=== PATIENT | male | born 1965 | race Two or more races ===

== ENCOUNTER 2016-11-22 22:31 | Emergency (ER) | payer OTHER ==
[2016-11-22] MEDS ORDERED: ASPIRIN 81 MG TABLET, CHEWABLE PO ONE (23:05)
--- NOTE | 2016-11-22 23:22 | RADIOLOGY REPORT (SQ) ---
EXAM DESCRIPTION: CHEST SINGLE VIEW COMPLETED DATE/TIME: 11/22/2016 11:15 pm REASON FOR STUDY: cp COMPARISON: None. EXAM PARAMETERS: NUMBER OF VIEWS: One view. TECHNIQUE: Single frontal radiographic view of the chest acquired. RADIATION DOSE: NA LIMITATIONS: None. FINDINGS: LUNGS AND PLEURA: No opacities, masses or pneumothorax. No pleural effusion. MEDIASTINUM AND HILAR STRUCTURES: No masses. Contour normal. HEART AND VASCULAR STRUCTURES: Heart normal in size. Normal vasculature. BONES: No acute findings. HARDWARE: None in the chest. OTHER: No other significant finding. IMPRESSION: NO ACUTE RADIOGRAPHIC FINDING IN THE CHEST. TECHNICAL DOCUMENTATION: JOB ID: [id number]
[2016-11-22 23:30] LABS: ABSOLUTE EOSINOPHILS # (AUTO) 0.1 10^3/uL (0.0-0.6); ABSOLUTE LYMPHOCYTES (AUTO) 2.2 10^3/uL (0.5-4.7); ABSOLUTE MONOCYTES (AUTO) 0.5 10^3/uL (0.1-1.4); ABSOLUTE NEUT (AUTO) 3.1 10^3/uL (1.7-8.2); BASOPHILS % (AUTO) 0.5 % (0-2); EOSINOPHILS % (AUTO) 1.8 % (0-6); HEMATOCRIT 39.3 % (37.9-51.0); HEMOGLOBIN 13.4 g/dL (13.5-17.0); HGB HCT DIFFERENCE 0.9; LYMPHOCYTES % (AUTO) 36.9 % (13-45); MEAN CORPUSCULAR HEMOGLOBIN 29.8 pg (27.0-33.4); MEAN CORPUSCULAR HGB CONC 34.2 g/dL (32.0-36.0); MEAN CORPUSCULAR VOLUME 87 fl (80-97); MONOCYTES % (AUTO) 8.4 % (3-13); RED BLOOD COUNT 4.51 10^6/uL (4.35-5.55); RED CELL DISTRIBUTION WIDTH 12.5 % (11.5-14.0); SEGMENTED NEUTROPHILS % (AUTO) 52.4 % (42-78)
[2016-11-22 23:41] LABS: ALANINE AMINOTRANSFERASE 28 U/L (21-72); ALBUMIN 4.3 g/dL (3.5-5.0); ALKALINE PHOSPHATASE 79 U/L (38-126); ANION GAP 10 (5-19); ASPARTATE AMINO TRANSFERASE 19 U/L (17-59); BILIRUBIN,DIRECT 0.3 mg/dL (0.0-0.4); BILIRUBIN,TOTAL 0.8 mg/dL (0.2-1.3); BLOOD UREA NITROGEN 15 mg/dL (7-20); CALCIUM 9.6 mg/dL (8.4-10.2); CARBON DIOXIDE 27 mmol/L (22-30); CHLORIDE 104 mmol/L (98-107); CREATINE KINASE 185 U/L (55-170); CREATININE RESULT 0.88 mg/dL (0.52-1.25); GLUCOSE 104 mg/dL (75-110); POTASSIUM 3.9 mmol/L (3.6-5.0); SODIUM 140.6 mmol/L (137-145); TOTAL PROTEIN 6.9 g/dL (6.3-8.2)
[2016-11-22 23:56] LABS: CREATINE KINASE MB 1.04 ng/mL (<4.55)
[2016-11-22 23:59] LABS: TROPONIN I < 0.012 ng/mL
--- NOTE | 2016-11-23 00:46 | ER Document Report ---
ED Cardiac <KAMERON CURRY - Last Filed: 11/23/16 01:07> - General Mode of Arrival: Ambulatory Information source: Patient TRAVEL OUTSIDE OF THE [place] IN LAST 30 DAYS: No - HPI Chest pain location: Substernal Quality of pain: Burning, Indigestion Chest pain radiation location: None Severity now: None Severity at worst: Mild Pain level currently: Denies Cardiac risk factors: Smoker Similar symptoms previously: No Recently seen / treated by doctor: No <HELADIO MCKEON - Last Filed: 11/23/16 02:44> - General Chief Complaint: Chest Pain Stated Complaint: CHEST PAIN Time Seen by Provider: 11/23/16 00:46 - HPI Notes: Patient is a 51 year old male presenting to the emergency department for chest pain x1 week. Patient's pain is waxing and waning and lasts for about 30 minutes each time it is present. Patient states Advil and some "candy" type medicine from the gas station that may be an anti-acid helps relieve his pain. Patient does not recall anything that exacerbates his pain; patient's pain is not exacerbated with food or heavy lifting type of work. Patient does smoke about 5 cigarettes per day. Patient has no known drug allergies. (HELADIO MCKEON) - Related Data Allergies/Adverse Reactions: No Known Allergies Allergy (Unverified 04/05/16 08:43) Past Medical History - General Information source: Patient - Social History Smoking Status: Current Every Day Smoker Cigarette use (# per day): Yes - 1/4 ppd Chew tobacco use (# tins/day): No Frequency of alcohol use: None Drug Abuse: None Family History: None Patient has suicidal ideation: No Patient has homicidal ideation: No - Past Medical History Cardiac Medical History: Reports: None Surgical Hx: Negative - Immunizations Hx Diphtheria, Pertussis, Tetanus Vaccination: Yes <HELADIO MCKEON - Last Filed: 11/23/16 02:44> Review of Systems - Review of Systems Constitutional: No symptoms reported EENT: No symptoms reported Cardiovascular: See HPI, Chest pain Respiratory: No symptoms reported Gastrointestinal: No symptoms reported Genitourinary: No symptoms reported Male Genitourinary: No symptoms reported Musculoskeletal: No symptoms reported Skin: No symptoms reported Hematologic/Lymphatic: No symptoms reported Neurological/Psychological: No symptoms reported -: Yes All other systems reviewed and negative <HELADIO MCKEON - Last Filed: 11/23/16 02:44> Physical Exam <KAMERON CURRY - Last Filed: 11/23/16 01:07> - Vital signs Interpretation: Normal <HELADIO MCKEON - Last Filed: 11/23/16 02:44> - Vital signs Vitals: Temp Pulse Resp BP Pulse Ox 97.9 F 74 18 137/82 H 98 11/22/16 22:48 11/22/16 22:48 11/22/16 22:48 11/22/16 22:48 11/22/16 22:48 - Notes Notes: GENERAL: Alert, interacts well. No acute distress. HEAD: Normocephalic, atraumatic. EYES: Appear normal. Pupils equal, round, and reactive to light. ENT: Moist mucus membranes, tongue midline. NECK: Full range of motion. Supple. Trachea midline. LUNGS: Clear to auscultation bilaterally, no wheezes, rales, or rhonchi. No respiratory distress. Some slight epigastric pain with deep palpation. HEART: Regular rate and rhythm. No murmurs, gallops, or rubs. ABDOMEN: Soft, non-tender. Non-distended. Normal bowel sounds. BACK: Lipoma to the left scapular region which is chronic in nature. EXTREMITIES: Moves all 4 extremities spontaneously. Normal strength. No edema. NEUROLOGICAL: Alert and oriented x3. Normal speech. No focal neurological deficits. GSC 15. PSYCH: Normal affect, normal mood. SKIN: Warm, dry, normal turgor. (LINDAHELADIO) Course - Laboratory Result Diagrams: 11/22/16 23:16 11/22/16 23:16 <ANTOINETTEKAMERON - Last Filed: 11/23/16 01:07> - Laboratory Result Diagrams: 11/22/16 23:16 11/22/16 23:16 <JOSEANABELHELADIO - Last Filed: 11/23/16 02:44> - Vital Signs Vital signs: Temp Pulse Resp BP Pulse Ox 97.9 F 74 13 124/76 98 11/22/16 22:48 11/22/16 22:48 11/23/16 01:16 11/23/16 01:16 11/23/16 01:16 - Laboratory Laboratory results interpreted by me: 11/22/16 11/22/16 23:16 23:16 Hgb 13.4 L Creatine Kinase 185 H Discharge <ANTOINETTEKAMERON Chua - Last Filed: 11/23/16 01:07> <HELADIO MCKEON - Last Filed: 11/23/16 02:44> - Discharge Clinical Impression: Gastroesophageal reflux Qualifiers: Esophagitis presence: without esophagitis Qualified Code(s): K21.9 - Gastro- esophageal reflux disease without esophagitis Condition: Stable Disposition: HOME, SELF-CARE Additional Instructions: Chest Pain of Unclear Cause: The exact cause of your chest pain isn't clear. Fortunately, there is no evidence of a dangerous medical condition. Further testing may be required to find the source of the pain. Most often, we find that this pain is coming from the chest wall -- the muscles or rib joints in the chest. But chest pain can come from the lung and lung lining, the esophagus, the heart valves or heart lining, and even the stomach or gallbladder. Rest. Eat lightly until the pain is gone. We may prescribe medicine for pain and inflammation. You should call the physician immediately if the pain radiates to the shoulder, jaw or arms; if you start to run a fever or develop a cough; or if you develop shortness of breath, or other new or alarming symptoms. Reflux Disease (GERD): Gastro-Esophageal Reflux Disease (GERD) is caused by stomach acid refluxing back up into the esophagus. The valve at the end of the esophagus may be weak. This is common in persons with a hiatal hernia. GERD symptoms can include indigestion, chest pain, heartburn, or food "sticking." Certain foods, alcohol, and aspirin can make GERD worse. Treatment depends on the severity. Usually, antacids or acid-suppressing medicines are used. When the esophagus is acutely inflamed, the physician will often prescribe membrane-protective drugs such as Carafate. Some patients benefit from medication such as Reglan that tightens the valve at the top of the stomach. Avoid those foods that bring on your symptoms. For many people, these foods are coffee, chocolate, onions, garlic, and carbonated drinks. Don't use alcohol, aspirin, caffeine, or tobacco. Don't eat late at night -- within 4 hours of bedtime. Don't over-eat. If necessary, elevate the head of your bed about 4 inches so that stomach acid will not roll up into your esophagus. Call the doctor if you develop severe chest pain, inability to swallow fluids, fever, or worsening symptoms. TAKE PRILOSEC OTC ONCE DAILY. EAT A BLAND DIET. TAKE ANTI-ACIDS BETWEEN MEALS AND AT BEDTIME. FOLLOW UP WITH A LOCAL MEDICAL DOCTOR IF NOT IMPROVING. RETURN TO THE EMERGENCY ROOM IF ANY NEW OR WORSENING SYMPTOMS. Scribe Attestation: 11/23/16 01:10 I personally performed the services described in the documentation, reviewed and edited the documentation which was dictated to the scribe in my presence, and it accurately records my words and actions. (KAMERON CURRY) Scribe Documentation - Scribe Written by Arpit:: Arpit Valdez 11/23/16 2:32 acting as scribe for :: Antoinette <HELADIO MCKEON - Last Filed: 11/23/16 02:44>
[2016-11-23 01:20] VITALS: BP 124/76
--- NOTE | 2016-11-23 12:50 | EKG REPORT ---
SEVERITY:- BORDERLINE ECG - SINUS RHYTHM PROBABLE LEFT ATRIAL ABNORMALITY : Confirmed by: Nano Barrientos 23-Nov-2016 12:49:08
--- NOTE | 2016-11-23 12:54 | EKG REPORT ---
SEVERITY:- ABNORMAL ECG - SINUS RHYTHM CONSIDER LEFT VENTRICULAR HYPERTROPHY : Confirmed by: Nano Barrientos 23-Nov-2016 12:54:10
== END 2016-11-23 01:20 | disposition home or self-care (01) ==
LOC: ER 22:31
DX: K21.9 Gastro-esophageal reflux disease without esophagitis (principal); R07.9 Chest pain, unspecified; R10.13 Epigastric pain; F17.210 Nicotine dependence, cigarettes, uncomplicated
CPT/HCPCS: 36415; 71010; 80053; 82550; 82553; 84484; 85025; 93005; 93010; 99285